=== PATIENT | female | born 1945 | race Caucasian/White ===

== ENCOUNTER 2017-12-09 01:11 | Emergency (ER) | payer MEDICARE ==
[~2017-12-09] VITALS: Ht 160 cm; Wt 63.1 kg
[~2017-12-09 01:11] MED LIST: MACR100C PO
[2017-12-09 01:16] VITALS: BP 194/98; PULSE 80; RESP 18; TEMP 98.2; O2SAT 99
[2017-12-09] MEDS ORDERED: RABE1TAB PO (01:35)
[2017-12-09] MEDS ORDERED: LOVA20TA PO (01:35)
[2017-12-09] MEDS ORDERED: VALS160T6 PO (01:35)
[2017-12-09 01:48] VITALS: BP 157/92; PULSE 70; RESP 20; O2SAT 96
[2017-12-09 01:52] LABS: BILIRUBIN, URINE NEG (NEG); BLOOD, URINE LARGE (NEG); GLUCOSE,URINE NEG (NEG); KETONE, URINE NEG (NEG); NITRITE,URINE POS (NEG); PH, URINE 6.5 (5.0-8.5); URINE COLOR YELLOW (YELLW/STRAW); URINE LEUKOCYTE ESTERASE LARGE (NEG)
[2017-12-09 01:59] LABS: BACTERIA, URINE MANY /hpf; SQUAMOUS EPITHELIAL CELL URINE 0-5 /hpf (0-5); WBC, URINE INNUM /hpf (0-5)
[2017-12-09] MEDS ORDERED: MACR100C2 PO (02:44)
[2017-12-09] MEDS ORDERED: PHEN0.4T PO (02:44)
--- NOTE | 2017-12-09 02:46 | PD ---
HPI Chief Complaint: ENT Complaint Time Seen by Provider: 02:38 Travel History International Travel<30 days: No Contact w/Intl Traveler<30days: No Traveled to known affect area: No History of Present Illness HPI 72-year-old female with hypertension dyslipidemia irritable bowel syndrome recurrent urinary tract infections presents to the emergency department for 1 day of urinary frequency urgency dysuria and mild flank pain. No fever chills. Patient has had some mild nausea. No vomiting. Patient denies other concerns or complaints. Patient states urinating worsening symptoms patient is unable to identify alleviating factors. PFSH Past Medical History Narrative Medical Irritable bowel syndrome dyslipidemia hypertension recurrent urinary tract infection GERD; nursing notes reviewed Arthritis: Yes High Cholesterol: Yes Diminished Hearing: No Gastrointestinal Disorders: Yes (IBS) GERD: Yes Hypertension: Yes Tetanus Vaccination: Unknown Influenza Vaccination: No LMP: 3 : 3 Past Surgical History Appendectomy: Yes Hysterectomy: Yes Social History Alcohol Use: No Tobacco Use: No Substance Use: No Allergies-Medications (Allergen,Severity, Reaction): Coded Allergies: diclofenac (Unverified Allergy, Mild, 12/09/17) etodolac (Unverified Allergy, Mild, 12/09/17) flurbiprofen (Unverified Allergy, Mild, 12/09/17) ibuprofen (Unverified Allergy, Mild, 12/09/17) indomethacin (Unverified Allergy, Mild, 12/09/17) ketoprofen (Unverified Allergy, Mild, 12/09/17) ketorolac (Unverified Allergy, Mild, 12/09/17) naproxen (Unverified Allergy, Mild, 12/09/17) oxaprozin (Unverified Allergy, Mild, 12/09/17) ciprofloxacin (Verified Adverse Reaction, Unknown, NAUSEA, 12/09/17) Reported Meds & Prescriptions Reported Meds & Active Scripts Active Reported Lovastatin 20 Mg Tab 20 Mg PO DAILY Rabeprazole (Rabeprazole Sodium) 20 Mg Tab 20 Mg PO DAILY Valsartan-Hctz 160-25 mg Tab (Valsartan/Hydrochlorothiazide) 160 Mg-25 Mg Tablet 160 PO DAILY Review of Systems Except as stated in HPI: all other systems reviewed are Neg General / Constitutional: No: Fever, Chills HENT: No: Congestion Cardiovascular: No: Chest Pain or Discomfort Respiratory: No: Shortness of Breath Gastrointestinal: Positive: Nausea, Abdominal Pain (Suprapubic pressure), No: Vomiting, Diarrhea Genitourinary: Positive: Urgency, Frequency, Dysuria, Flank Pain Musculoskeletal: No: Myalgias, Arthralgias Skin: No Rash Neurologic: No: Weakness, Dizziness, Syncope Psychiatric: No: Anxiety Hematologic/Lymphatic: No: Lymph Node Enlargement Physical Exam Narrative GENERAL: Well-developed well-nourished elderly female no acute distress no respiratory distress SKIN: Warm and dry. HEAD: Normocephalic. EYES: No scleral icterus. No injection or drainage. NECK: Supple, trachea midline. No JVD or lymphadenopathy. CARDIOVASCULAR: Regular rate and rhythm without murmurs, gallops, or rubs. RESPIRATORY: Breath sounds equal bilaterally. No accessory muscle use. GASTROINTESTINAL: Abdomen soft, non-tender, nondistended. No guarding no rebound MUSCULOSKELETAL: No cyanosis, or edema. BACK: Nontender without obvious deformity. No CVA tenderness. Data Data Last Documented VS Vital Signs Date Time Temp Pulse Resp B/P (MAP) Pulse Ox O2 Delivery O2 Flow Rate FiO2 12/09/17 01:49 20 12/09/17 01:48 70 157/92 (113) 96 12/09/17 01:16 98.2 Orders Orders Urinalysis - C+S If Indicated (12/09/17 01:38) Urine Culture (12/09/17 01:40) Labs Laboratory Tests Test 12/09/17 01:40 Urine Color YELLOW Urine Turbidity SL CLOUDY Urine pH 6.5 Urine Specific [place] LESS/EQUAL 1.005 Urine Protein TRACE mg/dL Urine Glucose (UA) NEG mg/dL Urine Ketones NEG mg/dL Urine Occult Blood LARGE Urine Nitrite POS Urine Bilirubin NEG Urine Urobilinogen 0.2 MG/DL Urine Leukocyte Esterase LARGE Urine RBC 10-14 /hpf Urine WBC INNUM /hpf Urine Squamous Epithelial Cells 0-5 /hpf Urine Bacteria MANY /hpf Microscopic Urinalysis Comment CULTURE INDICATED MDM Medical Decision Making Medical Screen Exam Complete: Yes Emergency Medical Condition: Yes Medical Record Reviewed: Yes Interpretation(s) UA: Positive nitrites positive leukocyte Estrace positive white blood cells positive many bacteria; culture indicated Differential Diagnosis UTI hemorrhagic cystitis diverticulitis Narrative Course Patient given first dose of oral antibiotic in the emergency department Diagnosis Primary Impression: UTI (urinary tract infection) Referrals: Primary Care Physician call for appointment Patient Instructions: General Instructions Additional Instructions: Complete course of antibiotic as prescribed Follow-up with your primary care provider call office in a.m. to schedule follow -up appointment Monitor temperature for fever take acetaminophen/Tylenol every 4 hours as needed for fever 100.4F or greater Return to the emergency department for any concerns or change in condition Med/Other Pt SpecificInfo: Prescription(s) given Scripts Nitrofurantoin Monohydrate Macrocrystals (Macrobid) 100 Mg Cap 100 MG PO BID for Infection for 10 Days, #20 CAP 0 Refills Prov: Shante Fuchs MD 12/09/17 Phenazopyridine (Pyridium) 100 Mg Tab 100 MG PO Q8H Y for DYSURIA, #6 TAB 0 Refills Prov: Shante Fuchs MD 12/09/17 Disposition: 01 DISCHARGE HOME Condition: Stable Shante Fuchs MD Dec 09, 2017 02:46
[2017-12-09 03:00] VITALS: BP 157/92
[2017-12-09] MEDS ORDERED: PHENAZOPYRIDINE HCL 100 MG TAB PO ONE (03:00)
[2017-12-09] MEDS ORDERED: NITROFURANTOIN MONOHYD MACROCR 100 MG CAP PO ONE (03:00)
== END 2017-12-09 03:03 | disposition home or self-care (01) ==
LOC: PHED 01:11
DX: N39.0 Urinary tract infection, site not specified (principal); B96.20 Unspecified Escherichia coli [E. coli] as the cause of diseases classified elsewhere; R11.0 Nausea; R30.0 Dysuria; I10 Essential (primary) hypertension; E78.5 Hyperlipidemia, unspecified; K58.9 Irritable bowel syndrome, unspecified; K21.9 Gastro-esophageal reflux disease without esophagitis; E78.00 Pure hypercholesterolemia, unspecified; M19.90 Unspecified osteoarthritis, unspecified site; Z87.440 Personal history of urinary (tract) infections
CPT/HCPCS: 81001; 87077; 87086; 87186; 99283